=== PATIENT | male | born 1985 | race Caucasian/White ===

== ENCOUNTER 2023-06-21 10:02 | Emergency (ER) | payer BC, SELFPAY ==
[2023-06-21 10:03] VITALS: BP 127/84; PULSE 69; RESP 18; TEMP 36.6; O2SAT 97; BMI 29.0
--- NOTE | 2023-06-21 10:20 | PC.NURSE ---
DR OH AT BEDSIDE
--- NOTE | 2023-06-21 10:23 | XR_ITS ---
FINAL REPORT CLINICAL HISTORY: Right shoulder pain COMPARISON: None FINDINGS: 3 views of the right shoulder show no evidence of acute displaced fracture or dislocation of the visualized bony architecture. The joint spaces appear normal. IMPRESSION: Unremarkable exam. Reviewed, Interpreted and Dictated by Fitz Jurado MD Transcribed by Judi Winchester Authenticated and [facility]
--- NOTE | 2023-06-21 10:23 | CT_ITS ---
FINAL REPORT CLINICAL HISTORY: Neck pain rad to R shoulder/upper back, limitedROM COMPARISON: None FINDINGS: CT THORACIC SPINE Thin section axial CT with sagittal and coronal reconstructions were obtained of the thoracic spine. This study was performed with techniques to keep radiation doses as low as reasonably achievable, (ALARA). Individualized dose reduction techniques using automated exposure control or adjustment of mA and/or kV according to the patient's size were employed. No fracture is present. Alignment is normal. No bony canal stenosis is seen. No significant disc abnormalities. IMPRESSION: Negative CT evaluation of the thoracic spine for acute bony injury. Reviewed, Interpreted and Dictated by Fitz Jurado MD Transcribed by Judi Winchester Authenticated and [facility]
--- NOTE | 2023-06-21 10:23 | CT_ITS ---
FINAL REPORT TECHNIQUE: Thin section axial CT with sagittal reconstruction without contrast were obtained of the cervical spine. This study was performed with techniques to keep radiation doses as low as reasonably achievable, (ALARA). Individualized dose reduction techniques using automated exposure control or adjustment of mA and/or kV according to the patient's size were employed. CLINICAL HISTORY: Neck pain rad to R shoulder/upper back, limitedROM COMPARISON: None FINDINGS: No fracture is seen. Alignment is normal. There is left bony neuroforaminal narrowing at C3-4. There is mild lower cervical spine degenerative disc change. There is no evidence of bony canal stenosis. No gross disk abnormalities are seen. IMPRESSION: Mild degenerative changes. No fracture or malalignment Reviewed, Interpreted and Dictated by Fitz Jurado MD Transcribed by Judi Winchester Authenticated and . [facility]
--- NOTE | 2023-06-21 10:25 | HMH.EDGENADL ---
Discharge Plan Disposition Patient Disposition: Home, Self-Care Condition: Good Prescriptions Prescriptions: New methocarbamol 750 mg tablet 750 mg PO Q8H PRN (Reason: pain) Qty: 20 0RF ketorolac 10 mg tablet 10 mg PO Q8H PRN (Reason: pain) 1 Days Qty: 20 0RF lidocaine [Lidoderm] 5 % adhesive patch,medicated 1 patch topical DAILY Qty: 15 0RF Rx Instructions: leave on most painful area for up to 12 hrs Referrals Follow up/Referrals: Bernardo Hansen DO [Staff Physician] - See instructions Provider,Referral, [Primary Care Provider] - See instructions Activity Restrictions/Add. Instructions Additional Instructions/Restrictions: You were evaluated in the emergency department today. Please waste picker your prescriptions at the pharmacy and take them as prescribed. You may also take Tylenol every 4-6 hours as needed for pain. Follow-up closely with primary care as well as with orthopedics. We have provided you with information for orthopedics. Return to the emergency department for new or worsening symptoms. Clinical Impressions Clinical Impression: Acute shoulder pain, Cervical disc disease Instructions Patient Instructions: DI for Cervical Radiculopathy, DI for Neck Pain Discharge ED Provider: Iman Colin General Adult HPI General Chief complaint: Neck Pain/Injury Stated complaint: pain in neck, shoulders, Rt arm Time Seen by Provider: 06/21/23 10:18 Mode of Arrival: Ambulatory Source of Information: Patient Limitations: Physical Limitations Description of Symptoms (Recalled from ER Triage Doc. by RN): neck and r shoulder pain History of Present Illness HPI narrative: This patient is a 37-year-old male who denies significant past medical history presenting to the emergency department for evaluation with concern for severe neck pain radiating to his right shoulder. He states that the only position that he can get comfortable and is having his right arm raised above his head. He states he cannot put his arm down without having severe pain. He denies any known injuries. No numbness, tingling, or other concerns. The pain radiates from his neck and right shoulder up into his upper back. He states that he feels like he is having muscle spasms. No other concerns noted at this time. He does note that he had an issue similar in the past but not this severe with a slipped disc in his neck. Related Data Previous Rx's Medication Instructions Recorded ketorolac 10 mg tablet 10 mg PO Q8H PRN pain 1 day #20 06/21/23 tabs lidocaine 5 % topical patch 1 patch topical DAILY #15 ea 06/21/23 (Lidoderm) methocarbamol 750 mg tablet 750 mg PO Q8H PRN pain #20 tabs 06/21/23 Allergies Allergy/AdvReac Type Severity Reaction Status Date / Time Sulfa (Sulfonamide Allergy Verified 06/21/23 10:29 Antibiotics) [facility] Disclaimer: The information contained in this section may have been updated after the patient was seen, as this information can be updated by other users. Social History Smoking Status: Former smoker alcohol intake: never current occupational status: employed Travel in the last 8 weeks: None ROS Obtained: Yes All systems reviewed & no additional complaints except as documented Physical Exam General General appearance: alert and in no apparent distress Comment: Uncomfortable appearing Head Head exam: atraumatic and normocephalic Eye Eye exam: Present normal appearance, PERRL and EOMI ENT ENT exam: Present normal exam, normal oropharynx, mucous membranes moist and normal external ear exam Neck Neck exam: Present full ROM, trachea midline and tenderness (Especially on the right paraspinal portion of the neck) Chest Chest inspection: Present normal inspection and symmetric chest wall rise; Absent tenderness Respiratory Respiratory exam: Present normal lung sounds bilaterally; Absent respiratory distress, wheezes, stridor or accessory muscle use Cardiovascular Cardiovascular exam: Present regular rate and normal rhythm Abdominal Exam Abdominal exam: Present soft; Absent distention, tenderness or guarding Extremities Exam Extremities exam: Present tenderness (Tenderness to palpation of the right shoulder muscles, especially the suprascapular muscles. Limited range of motion of the right shoulder secondary to pain.) and normal capillary refill; Absent full ROM or edema Back Exam Back exam: Present normal inspection and full ROM; Absent tenderness Neurological Exam Neurological exam: Present alert, oriented X3, CN II-XII intact and normal gait; Absent motor sensory deficit Psychiatric Psychiatric exam: Present normal affect and normal mood Skin Skin exam: Present warm and dry Medical Decision Making Medical Records Medical records reviewed: Yes I reviewed the patient's medical records. Gary Inquiry Pt receiving controlled substance: No Vital Signs: 06/21/23 10:03 06/21/23 11:00 Temperature 97.9 F Temperature Source Oral Pulse Rate 82 Pulse Rate [Right] 69 Respiratory Rate 18 Blood Pressure 99/78 L Blood Pressure [Right Arm] 127/84 Blood Pressure Mean [Right Arm] 98 02 Sat by Pulse Oximetry 97 98 Oxygen Delivery Method Room Air Lab Data Lab results reviewed: Yes I reviewed the patient's lab results. Orders (Tests/Meds): ED MEDICATIONS Discontinued Medications Generic Name Dose Route Start Last Admin Trade Name Willard PRN Reason Stop Dose Admin Acetaminophen 1,000 mg 06/21/23 10:23 06/21/23 10:42 Acetaminophen 500mg Tab PO 06/21/23 10:24 1,000 mg ONCE ONE Administration Dexamethasone Sodium Phosphate 10 mg 06/21/23 11:59 06/21/23 12:02 Dexamethasone 4mg/Ml 1ml Vial IM 06/21/23 12:00 10 mg ONCE ONE Administration Diazepam 5 mg 06/21/23 10:23 06/21/23 10:43 Diazepam 5mg Tablet PO 06/21/23 10:24 5 mg ONCE ONE Administration Ketorolac Tromethamine 30 mg 06/21/23 10:23 06/21/23 10:42 Ketorolac 30mg/Ml Vial IM 06/21/23 10:24 30 mg ONCE ONE Administration Lidocaine 1 each 06/21/23 10:23 06/21/23 10:42 Lidocaine 5% Transdermal Patch TP 06/21/23 10:24 1 each ONCE ONE Administration ORDERS Category Date Time Status CT cervical spine wo con Stat Cat Scan 06/21/23 10:[address] thoracic spine wo con Stat Cat Scan 06/21/23 10:23 Completed XR shoulder RT min 2V Stat Exams 06/21/23 10:23 Completed Medical Decision Narrative: In summary, this patient is a 37-year-old male presenting to the Emergency Department for evaluation of significant neck and right shoulder pain. Differential diagnoses considered include but are not limited to cervical disc herniation, musculoskeletal strain/strain, rotator cuff injury, brachial plexus injury. Ruling out the most morbid conditions drove assessment. It should be noted patient's history includes history of cervical disc disease which is likely not at goal therapy. This complicates all aspects of care by increasing patient's risk for morbidity. On exam, the patient is uncomfortable appearing with tenderness to palpation of the muscles about the right shoulder and neck. Workup included CT C-spine, CT T-spine, and right shoulder x-ray. He was given oral Tylenol, Valium, topical Lidoderm patch, and IM Toradol for symptomatic improvement. I independently interpreted CT scan and x-ray prior to the radiologist read and noted no acute fracture. Please see their read for final interpretation. On reassessment, patient had good improvement after the interventions above. He is still having some pain and spasms, but he is able to move his arm more now. He was given a shot of dexamethasone for further symptomatic improvement. At this time, I feel that he is appropriate for discharge home with instructions for supportive management, close outpatient follow-up with orthopedics and primary care, prescriptions for Toradol, Robaxin, and Lidoderm patches. Patient was discharged after all questions were answered. Critical Care Critical Care Time Critical Care Time: No
--- NOTE | 2023-06-21 10:29 | PC.NURSE ---
PT TO RADIOLOGY
--- NOTE | 2023-06-21 10:39 | PC.NURSE ---
pt returned from rad
[2023-06-21] MEDS: LIDOCAINE 5% TRANSDERMAL PATCH 1 EACH TP (10:42)
[2023-06-21] MEDS: ACETAMINOPHEN 500MG TAB 1000 MG PO (10:42)
[2023-06-21] MEDS: KETOROLAC 30MG/ML VIAL 30 MG IM (10:42)
[2023-06-21] MEDS: diazePAM 5MG TABLET 5 MG PO (10:43)
[2023-06-21 11:00] VITALS: BP 99/78; PULSE 82; O2SAT 98
--- NOTE | 2023-06-21 11:58 | PC.NURSE ---
Dr. Colin at BS to update pt on POC
[2023-06-21] MEDS: DEXAMETHASONE 4MG/ML 1ML VIAL 10 MG IM (12:02)
[2023-06-21 12:07] VITALS: BP 127/84; PULSE 74; RESP 18; TEMP 36.6; O2SAT 98
== END 2023-06-21 12:12 | disposition home or self-care (01) ==
PROVIDERS: Emergency Provider Emergency Medicine
DX: M54.2 Cervicalgia (principal); M54.12 Radiculopathy, cervical region; M25.511 Pain in right shoulder; M62.838 Other muscle spasm
CPT/HCPCS: 72125; 72128; 73030; 96372; 99285

== ENCOUNTER 2023-12-14 14:06 | Emergency (ER) | payer OTHER, SELFPAY ==
[2023-12-14 14:15] VITALS: BP 145/94; PULSE 65; RESP 18; TEMP 36.7; O2SAT 98; BMI 28.8
--- NOTE | 2023-12-14 14:54 | EXP.UTC ---
Discharge Plan Disposition Patient Disposition: Home, Self-Care Condition: Good Prescriptions Prescriptions: New azithromycin 250 mg tablet 250 mg PO DIRECTED Qty: 6 0RF Rx Instructions: Take two (2) tablets on day #1, then one (1) tablet day #2 thru #5 fluticasone propionate 50 mcg/actuation spray,suspension 1 spray intranasal DAILY Qty: 16 0RF No Action sildenafil 100 mg tablet 100 mg PO DAILYP PRN (Reason: .) Patient Comments: TAKE 1 TABLET BY MOUTH ONCE DAILY NEEDED APPOXIMATELY 1 HOUR BEFORE SEXUAL ACTIVITY Referrals Follow up/Referrals: Provider,Referral, MD [Primary Care Provider] - See instructions Activity Restrictions/Add. Instructions Additional Instructions/Restrictions: Start antibiotic patient to take as ordered for a full length of time even if you feel better. Sinus infections do not get better overnight. It may take 2-3 days to notice much improvement so be sure to use conservative measures as discussed for symptoms. Flonase 1 spray each nostril daily to help with nasal congestion, sinus and ear pressure/information Increase fluids Humidifier/vaporizer as needed Tylenol and ibuprofen as needed for fever or pain. If symptoms do not improve or get worse return or be seen in the ER Follow-up with primary care this week Clinical Impressions Clinical Impression: Sinusitis Instructions Patient Instructions: DI for Sinusitis Print Language Print Language: Trinidadian Discharge ED Provider: Jaimee ([facility] [[email or web address]])Caleb [facility] [place] HPI General Stated complaint: drainage, congestion, cough Mode of Arrival: Ambulatory Source of Information: Patient Limitations: No Limitations Time Seen by Provider: 12/14/23 14:51 Description of Symptoms (Recalled from Triage Doc. by RN): PATIENT C/O RUNNY NOSE, CHEST CONGESTION, COUGH AND BODY ACHES X 3 DAYS HEENT Symptoms (Recalled from RN notes): Yes Resp Symptoms (Recalled from RN notes): Yes Skin Symptoms (Recalled from RN notes): No MS Symptoms (Recalled from RN notes): No Functional Status (Recalled from RN notes): WNL History of Present Illness Provider Complaint: 38-year-old male presents for complaints of chest congestion, cough, and body aches, runny nose, sinus tenderness, green dark drainage for 3 days Related Data Home Medications ?Medication ?Instructions ?Recorded ?Confirmed sildenafil 100 mg tablet 100 mg PO DAILYP PRN . 12/14/23 12/14/23 Previous Rx's ?Medication ?Instructions ?Recorded azithromycin 250 mg tablet 250 mg PO DIRECTED #6 tabs 12/14/23 fluticasone propionate 50 1 spray intranasal DAILY #16 grams 12/14/23 mcg/actuation nasal spray,suspension Allergies Allergy/AdvReac Type Severity Reaction Status Date / Time Sulfa (Sulfonamide Allergy Verified 06/21/23 10:29 Antibiotics) Worker's Comp Is this a Worker's Comp case?: No [facility] Disclaimer: The information contained in this section may have been updated after the patient was seen, as this information can be updated by other users. Medical History (Reviewed 12/14/23 @ 14:55 by Caleb Hermosillo ([facility] [[email or web address]]), [employer] SAL[employer]PRESENTATIVE) Depression Anxiety Hyperlipidemia Hypertension Social History (Reviewed 12/14/23 @ 14:55 by Caleb Hermosillo ([facility] [[email or web address] [employer] SALES REPRESENTATIVE) Smoking Status: Former smoker alcohol intake: never current occupational status: employed Travel in the last 8 weeks: None ROS Obtained: Yes Systems reviewed as appropriate & no additional complaints except as documented Physical Exam General General appearance: alert and in no apparent distress Eye Eye exam: Present normal appearance and PERRL ENT ENT exam: Present mucous membranes moist Expanded ENT Exam Nose exam: Present sinus tenderness Nasal speculum exam: Bilateral: purulent discharge Respiratory Respiratory exam: Present normal lung sounds bilaterally Cardiovascular Cardiovascular exam: Present regular rate and normal rhythm Abdominal Exam Abdominal exam: Present soft and normal bowel sounds Neurological Exam Neurological exam: Present alert and oriented X3 Skin Skin exam: Present warm and intact Medical Decision Making Medical Records Medical records reviewed: Yes I reviewed the patient's medical records. Screening: Per USPSTF and CDC recommendations, given the prevalence of disease in our region, it is our hospital?s policy to screen for HIV and viral Hepatitis for all patients aged 18 and over and those with ongoing risk factors. Gary Inquiry Pt receiving controlled substance: No Gary was queried for this patient: No Vital Signs: 12/14/23 14:15 Temperature 98.0 F Temperature Source Oral Pulse Rate [Left Brachial] 65 Respiratory Rate 18 Blood Pressure [Left Arm] 145/94 H Blood Pressure Mean [Left Arm] 111 Blood Pressure Source [Left Arm] Automatic Cuff Blood Pressure Position [Left Arm] Sitting 02 Sat by Pulse Oximetry 98 Oxygen Delivery Method Room Air Lab Data Lab results reviewed: Yes I reviewed the patient's lab results.
[2023-12-14 15:06] VITALS: BP 145/94; PULSE 65; RESP 18; TEMP 36.7; O2SAT 98
== END 2023-12-14 15:09 | disposition home or self-care (01) ==
PROVIDERS: Emergency Provider Nurse Practitioner Family
DX: J01.90 Acute sinusitis, unspecified (principal)
CPT/HCPCS: 99213; G0381